=== PATIENT | female | born 1960 | race Caucasian/White ===

== ENCOUNTER 2016-10-16 11:23 | Emergency (ER) | payer OTHER ==
[~2016-10-16] VITALS: Ht 165.1 cm; Wt 70.0 kg
[~2016-10-16 11:23] MED LIST: ATOR20TA38 PO; BENA40TA41 PO; OMEP40CA6 PO; SUCR1TAB56 PO; TRAM-40 PO
[2016-10-16 11:28] VITALS: Ht 165.1 cm; Wt 70.0 kg
[2016-10-16] MEDS ORDERED: FAMOTIDINE 20 MG INJ IV STA (12:30)
[2016-10-16] MEDS ORDERED: BELLADONNA/PHENOBARBITAL TAB PO STA (12:30)
[2016-10-16] MEDS ORDERED: LIDOCAINE/MYLANTA 40 ML BTL PO STA (12:30)
[2016-10-16 13:05] LABS: BASOPHIL # 0.1 10^3/ul (0.0-0.1); BASOPHILS % 0.7 % (0.0-2.0); EOSINOPHILS # 0.1 10^3/ul (0.0-0.5); EOSINOPHILS % 1.6 % (0.0-7.0); HEMATOCRIT 36.4 % (37.0-47.0); HEMOGLOBIN 12.9 g/dl (12.0-16.0); LYMPHOCYTES # 1.9 10^3/ul (0.8-2.9); MEAN CORPUSCULAR HEMOGLOBIN 31.7 pg (29.0-33.0); MEAN CORPUSCULAR HGB CONC 35.4 g/dl (32.0-37.0); MEAN CORPUSCULAR VOLUME 89.4 fl (82.0-101.0); MONOCYTE # 0.8 10^3/ul (0.3-0.9); MONOCYTES % 11.3 % (0.0-11.0); NEUTROPHILS % 60.1 % (39.0-77.0); PLATELET COUNT 316 10^3/UL (140-415); RED BLOOD COUNT 4.07 10^6/ul (4.20-5.40); RED CELL DISTRIBUTION WIDTH 11.5 % (11.5-14.5); WHITE BLOOD COUNT 7.4 10^3/ul (4.8-10.8)
[2016-10-16 13:29] LABS: ALBUMIN 4.5 g/dl (3.3-4.9); ALBUMIN/GLOBULIN RATIO 1.21; BILIRUBIN,INDIRECT 0.3 mg/dl (0-1.1); BILIRUBIN,TOTAL 0.3 mg/dl (0.2-1.3); CALCIUM 9.8 mg/dl (8.4-10.2); CREATININE 0.82 mg/dl (0.44-1.00); POTASSIUM 4.7 mmol/L (3.5-5.1); TOTAL PROTEIN 8.2 g/dl (6.1-8.1)
--- NOTE | 2016-10-16 13:34 | ERD ---
ER Documentation Chief Complaint Date/Time DATE: 10/16/16 TIME: 13:28 Chief Complaint Complains of abdominal pain x 3 days HPI This is a very pleasant 56-year-old female history of dyspepsia, borderline hypertension who presents to the emergency room complaining of epigastric abdominal discomfort. The patient describes postprandial epigastric abdominal discomfort usually after spicy foods. This is consistent with her dyspepsia in the past. She denies any nausea vomiting, no chest pain or shortness of breath no pain to the middle of her back. Symptoms are moderate at this time. ROS All systems reviewed and are negative except as per history of present illness. Medications Home Meds Active Scripts Omeprazole* (Omeprazole*) 20 Mg Capsule., 20 MG PO BID for 30 Days Prov:TAZ WOODY MD 10/16/16 Omeprazole* (Omeprazole*) 40 Mg Capsule., 40 MG PO DAILY, #20 CAP Prov:GENOVEVA GARLAND 01/20/16 Reported Medications Calcium Carbonate/Vitamin D3 (OYSTER SHELL 500 MG + VIT D TB) 1 Each Tablet, 1 EACH PO BID, TAB 10/16/16 Meloxicam* (Meloxicam*) 7.5 Mg Tablet, 7.5 MG PO DAILY, #30 TAB 10/16/16 Oxybutynin Chloride* (Ditropan*) 5 Mg Tab, 5 MG PO TID, TAB 10/16/16 Tramadol Hcl* (Ultram*) 50 Mg Tablet, 50 MG PO BID Y for PAIN, TAB 09/19/15 Benazepril Hcl* (Benazepril Hcl*) 40 Mg Tablet, 40 MG PO DAILY, #30 TAB 09/19/15 Atorvastatin Calcium* (Atorvastatin Calcium*) 20 Mg Tablet, 20 MG PO HS, TAB 08/30/13 Discontinued Scripts Sucralfate* (Carafate*) 1 Gm Tab, 1 GM PO BID for 30 Days, TAB Take one tablet BID and one hour prior to meals by mouth Prov:GENOVEVA GARLAND 01/20/16 Allergies Allergies: Coded Allergies: No Known Allergy (Unverified , 10/16/16) PMhx/Soc History of Surgery: Yes (c section, cholecystectomy) Anesthesia Reaction: No Hx Neurological Disorder: No Hx Respiratory Disorders: No Hx Psychiatric Problems: No Hx Miscellaneous Medical Probl: No (HIGH CHOLESTEROL, ARTHRITIS) Hx Alcohol Use: No Hx Substance Use: No Hx Tobacco Use: No Smoking Status: Never smoker FmHx Family History: No diabetes Physical Exam Vitals Vital Signs Date Time Temp Pulse Resp B/P Pulse Ox O2 Delivery O2 Flow Rate FiO2 10/16/16 14:16 77 20 130/77 98 Room Air 10/16/16 11:28 98.7 68 20 123/74 97 Physical Exam General: Well developed, well nourished, no acute distress Head: Normocephalic, atraumatic Eyes: Pupils equally reactive, EOM intact ENT: Moist mucous membranes Neck: Supple, no lymphadenopathy Respiratory: Lungs clear bilaterally, no distress Cardiovascular: RRR, no murmurs, rubs, or gallops Abdominal: Soft, non-tender, non-distended, no peritoneal signs, negative Gleason sign, no tenderness to McBurney's point : Deferred MSK: No edema, no unilateral swelling, 5/5 strength Neurologic: Alert and oriented, moving all extremities, normal speech, no focal weakness, no cerebellar signs Skin: No rash Psych: Normal mood Result Diagram: 10/16/16 1250 10/16/16 1250 Results 24 hrs Laboratory Tests Test 10/16/16 12:50 White Blood Count 7.410^3/ul Red Blood Count 4.0710^6/ul Hemoglobin 12.9g/dl Hematocrit 36.4% Mean Corpuscular Volume 89.4fl Mean Corpuscular Hemoglobin 31.7pg Mean Corpuscular Hemoglobin Concent 35.4g/dl Red Cell Distribution Width 11.5% Platelet Count 57393^3/UL Mean Platelet Volume 9.0fl Neutrophils % 60.1% Lymphocytes % 26.0% Monocytes % 11.3% Eosinophils % 1.6% Basophils % 0.7% Nucleated Red Blood Cells % 0.0/100WBC Neutrophils # (Manual) 4.510^3/ul Lymphocytes # 1.910^3/ul Monocytes # 0.810^3/ul Eosinophils # 0.110^3/ul Basophils # 0.110^3/ul Nucleated Red Blood Cells # 0.010^3/ul Sodium Level 139mmol/L Potassium Level 4.7mmol/L Chloride Level 104mmol/L Carbon Dioxide Level 26mmol/L Anion Gap 14 Blood Urea Nitrogen 21mg/dl Creatinine 0.82mg/dl Glucose Level 113mg/dl Calcium Level 9.8mg/dl Total Bilirubin 0.3mg/dl Direct Bilirubin 0.00mg/dl Indirect Bilirubin 0.3mg/dl Aspartate Amino Transf (AST/SGOT) 23IU/L Alanine Aminotransferase (ALT/SGPT) 37IU/L Alkaline Phosphatase 100IU/L Total Protein 8.2g/dl Albumin 4.5g/dl Globulin 3.70g/dl Albumin/Globulin Ratio 1.21 Lipase 114U/L Current Medications Medications (Trade) Dose Ordered Sig/Chantal Route PRN Reason Start Time Stop Time Status Last Admin Dose Admin Famotidine (Pepcid Iv) 20 mg ONCE STAT IV 10/16/16 12:30 10/16/16 12:32 DC 10/16/16 13:20 Miscellaneous Medication (Gi Cocktail (2)) 40 ml ONCE STAT PO 10/16/16 12:30 10/16/16 12:32 DC 10/16/16 13:19 Belladonna/ Phenobarbital () 2 tab ONCE STAT PO 10/16/16 12:30 10/16/16 12:32 DC 10/16/16 13:19 Procedures/MDM EKG, MONITORS, & DIAGNOSTIC IMAGING: EKG: I reviewed and interpreted a 12-lead EKG. Rhythm: Normal sinus rhythm Ectopy: None Intervals: No abnormalities ST segments: No elevations or depressions T waves: No contiguous inversions Gallbladder ultrasound: Status post cholecystectomy LAB INTERPRETATION: No significant leukocytosis MEDICAL DECISION MAKING: The patient presents with postprandial epigastric abdominal discomfort. This is most consistent with likely peptic ulcer disease versus dyspepsia. The patient does not exhibit any signs or symptoms concerning for acute vascular process, cardiopulmonary process or ACS. The patient does not require CT imaging of the abdomen and pelvis. Consider possible biliary colic therefore ultrasound of the gallbladder would be reasonable. ER COURSE: GI cocktail provided.Patient with improved symptoms. Asymptomatic. Repeat abdominal exam benign. Patient safe for discharge with outpatient GI follow-up I kept the patient and/or family informed of laboratory and diagnostic imaging results throughout the emergency room course. DISPOSITION PLAN: We discussed follow up with the patient's primary care doctor within 24 to 48 hours as needed. We also discussed return to the emergency room for worsening symptoms or worsening condition. Outpatient referral: Gastroenterology Discharge Medications: Omeprazole Departure Diagnosis: Primary Impression: Acute abdominal pain Additional Impression: Dyspepsia Condition: Stable TAZ WOODY MD Oct 16, 2016 13:34
[2016-10-16] MEDS ORDERED: OXYB5TAB7 PO (13:41)
[2016-10-16] MEDS ORDERED: MELO-109 PO (13:42)
[2016-10-16] MEDS ORDERED: CALC-277 PO (13:43)
--- NOTE | 2016-10-16 13:49 | RADRPT ---
PROCEDURE: US Abdomen Limited . CLINICAL INDICATION: Abdominal pain TECHNIQUE: Multiple real-time images were acquired of the patient's right upper quadrant abdomen u tilizing a high resolution transducer. COMPARISON: None FINDINGS: The liver measures 15.1 cm and demonstrates a normal echogenicity. The gallbladder has been removed. The common bile duct measures 8.6 mm in diameter. The visualized portions of the proximal pancreas are unremarkable. The tail of the pancreas is not well visualized. Antegrade flow is seen in the portal vein. Right kidney measures 11.0 cm. Right kidney demonstrates a normal echogenicity. No hydronephrosis, masses or stones are noted. IMPRESSION: Status post cholecystectomy Tail of the pancreas not well visualized. If characterization of this structure is needed repeat exa m or CT/MRI is recommended. RPTAT: AA .Calos Sánchez MD, MD Date Time Electronically viewed and signed by .Calos Sánchez MD, MD on 10/16/2016 13:48 .P/
[2016-10-16] MEDS ORDERED: OMEP20CA16 PO (14:07)
[2016-10-16 14:16] VITALS: BP 130/77; PULSE 77; RESP 20
== END 2016-10-16 14:16 | disposition home or self-care (01) ==
LOC: E/R 11:23
DX: R10.13 Epigastric pain (principal)
CPT/HCPCS: 76705; 80053; 83690; 85025; 93005; 96374; Z7502; Z7610

== ENCOUNTER 2017-01-15 08:32 | Emergency (ER) | payer OTHER ==
[~2017-01-15] VITALS: Ht 162.6 cm; Wt 71.5 kg
[~2017-01-15 08:32] MED LIST changes: +CALC-277 PO; +MELO-216 PO; +OMEP20CA16 PO; +OXYB5TAB7 PO; -SUCR1TAB56 PO
[2017-01-15 08:36] VITALS: Ht 162.6 cm; Wt 71.5 kg
[2017-01-15] MEDS ORDERED: SOD CHLORIDE 0.9% 500 ML IV STA (08:42)
[2017-01-15] MEDS ORDERED: KETOROLAC 30 MG INJ IV STA (08:42)
--- NOTE | 2017-01-15 08:49 | ERD ---
ER Documentation Chief Complaint Chief Complaint PT with AP nausea X 4 days. Pt denies CP. HPI 56-year-old female with a history of persistent epigastric pain returns to the emergency department complaining of worsening of epigastric pain for the last 4 days associated with nausea. The pain is 4/10, burning, without radiation. The patient had blood work done last week on last month here and it was unremarkable. 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 No diarrhea or constipation, no rectal bleeding, no weight loss. Treatment attempted: Ranitidine as needed with adequate control of the symptoms. ROS SYSTEMIC symptoms: no fever, chills, no night sweats, no weight loss EYE symptoms: No blurred vision, no eye discharge OTOLARYNGEAL symptoms: No hearing loss. No ear pain, no sore throat CARDIOVASCULAR symptoms: No chest pain or discomfort, no palpitations. PULMONARY symptoms: No dyspnea, no cough, no wheezing. GASTROINTESTINAL symptoms: Per HPI MUSCULOSKELETAL symptoms: No arthralgias, no muscle aches. NEUROLOGY symptoms: No confusion, no syncope, no numbness or tingling. SKIN: No rashes Medications Home Meds Active Scripts Acetaminophen* (Tylenol*) 325 Mg Tablet, 1 TAB PO Q6 Y for PAIN AND OR ELEVATED TEMP, #20 TAB Prov:DIEUDONNE VASQUEZ MD 01/15/17 Ranitidine Hcl* (Zantac*) 150 Mg Tablet, 150 MG PO BID Y for EPIGASTRIC PAIN, # 90 TAB Prov:DIEUDONNE VASQUEZ MD 01/15/17 Omeprazole* (Omeprazole*) 20 Mg Capsule., 20 MG PO BID for 30 Days Prov:TAZ WOODY MD 10/16/16 Omeprazole* (Omeprazole*) 40 Mg Capsule., 40 MG PO DAILY, #20 CAP Prov:GENOVEVA GARLAND 01/20/16 Reported Medications Calcium Carbonate/Vitamin D3 (OYSTER SHELL 500 MG + VIT D TB) 1 Each Tablet, 1 EACH PO BID, TAB 10/16/16 Meloxicam* (Meloxicam*) 7.5 Mg Tablet, 7.5 MG PO DAILY, #30 TAB 10/16/16 Oxybutynin Chloride* (Ditropan*) 5 Mg Tab, 5 MG PO TID, TAB 10/16/16 Tramadol Hcl* (Ultram*) 50 Mg Tablet, 50 MG PO BID Y for PAIN, TAB 09/19/15 Benazepril Hcl* (Benazepril Hcl*) 40 Mg Tablet, 40 MG PO DAILY, #30 TAB 09/19/15 Atorvastatin Calcium* (Atorvastatin Calcium*) 20 Mg Tablet, 20 MG PO HS, TAB 08/30/13 Allergies Allergies: Coded Allergies: No Known Allergy (Unverified , 10/16/16) PMhx/Soc History of Surgery: Yes (c section, cholecystectomy) Anesthesia Reaction: No Hx Neurological Disorder: No Hx Respiratory Disorders: No Hx Psychiatric Problems: No Hx Miscellaneous Medical Probl: No (HIGH CHOLESTEROL, ARTHRITIS) Hx Alcohol Use: No Hx Substance Use: No Hx Tobacco Use: No Physical Exam Vitals Vital Signs Date Time Temp Pulse Resp B/P Pulse Ox O2 Delivery O2 Flow Rate FiO2 01/15/17 08:36 98.6 64 18 152/72 100 Physical Exam Patient is in no acute distress, vital signs stable. Alert and fully oriented. EYES: PERRLA, EOMI, Sclera and conjunctiva appear normal. EARS: Canals clear, tympanic membranes WNL THROAT: Normal oropharynx. NECK: Supple, No lymphadenopathy. Full ROM without pain or tenderness. HEART: RRR, no rubs, murmurs, clicks or gallops. LUNGS: Clear to auscultation. ABDOMEN: Soft, mild tenderness in epigastric area, no masses or hepatosplenomegaly. EXTREMITIES: No edema bilaterally. BACK: Full ROM, no deformity, normal back exam NEURO: Cranial nerves grossly intact, no motor or sensory deficit Result Diagram: 01/15/17 0907 01/15/17 0907 Results 24 hrs Laboratory Tests Test 01/15/17 09:07 01/15/17 09:12 White Blood Count 5.710^3/ul Red Blood Count 3.9110^6/ul Hemoglobin 12.2g/dl Hematocrit 34.9% Mean Corpuscular Volume 89.3fl Mean Corpuscular Hemoglobin 31.2pg Mean Corpuscular Hemoglobin Concent 35.0g/dl Red Cell Distribution Width 11.5% Platelet Count 59533^3/UL Mean Platelet Volume 8.8fl Neutrophils % 56.9% Lymphocytes % 28.8% Monocytes % 9.5% Eosinophils % 3.9% Basophils % 0.7% Nucleated Red Blood Cells % 0.0/100WBC Neutrophils # 3.210^3/ul Lymphocytes # 1.610^3/ul Monocytes # 0.510^3/ul Eosinophils # 0.210^3/ul Basophils # 0.010^3/ul Nucleated Red Blood Cells # 0.010^3/ul Sodium Level 143mmol/L Potassium Level 4.3mmol/L Chloride Level 109mmol/L Carbon Dioxide Level 26mmol/L Anion Gap 12 Blood Urea Nitrogen 17mg/dl Creatinine 0.73mg/dl Glucose Level 103mg/dl Calcium Level 10.1mg/dl Total Bilirubin 0.4mg/dl Direct Bilirubin 0.00mg/dl Indirect Bilirubin 0.4mg/dl Aspartate Amino Transf (AST/SGOT) 25IU/L Alanine Aminotransferase (ALT/SGPT) 45IU/L Alkaline Phosphatase 90IU/L Total Protein 7.5g/dl Albumin 4.1g/dl Globulin 3.40g/dl Albumin/Globulin Ratio 1.20 Lipase 142U/L Urine Color YELLOW Urine Clarity CLEAR Urine pH 6.0 Urine Specific [place] 1.018 Urine Ketones NEGATIVEmg/dL Urine Nitrite NEGATIVEmg/dL Urine Bilirubin NEGATIVEmg/dL Urine Urobilinogen NEGATIVEmg/dL Urine Leukocyte Esterase NEGATIVELeu/ul Urine Hemoglobin NEGATIVEmg/dL Urine Glucose NEGATIVEmg/dL Urine Total Protein NEGATIVEmg/dl Current Medications Medications (Trade) Dose Ordered Sig/Chantal Route PRN Reason Start Time Stop Time Status Last Admin Dose Admin Sodium Chloride (NS) 500 ml @ 500 mls/hr Q1H STAT IV 01/15/17 08:42 01/15/17 09:41 Cancel Ketorolac Tromethamine (Toradol) 30 mg ONCE STAT IV 01/15/17 08:42 01/15/17 08:43 Cancel Ranitidine HCl (Zantac) 300 mg ONCE ONCE PO 01/15/17 09:30 01/15/17 09:31 DC 01/15/17 09:22 Acetaminophen (Tylenol Tab) 325 mg ONCE ONCE PO 01/15/17 09:30 01/15/17 09:31 DC 01/15/17 09:23 [place] [id number] Radiology Main Line: [phone] DIAGNOSTIC IMAGING REPORT Patient: CLAIRE ARRIOLA : 1960 Age: 56 Sex: F MR #: [id number] DOS: 10/16/16 1230 Ordering MD: TAZ WOODY MD Location: E/R Room/Bed: PROCEDURE: US Abdomen Limited . CLINICAL INDICATION: Abdominal pain TECHNIQUE: Multiple real-time images were acquired of the patient's right upper quadrant abdomen utilizing a high resolution transducer. COMPARISON: None FINDINGS: The liver measures 15.1 cm and demonstrates a normal echogenicity. The gallbladder has been removed. The common bile duct measures 8.6 mm in diameter. The visualized portions of the proximal pancreas are unremarkable. The tail of the pancreas is not well visualized. Antegrade flow is seen in the portal vein. Right kidney measures 11.0 cm. Right kidney demonstrates a normal echogenicity. No hydronephrosis, masses or stones are noted. IMPRESSION: Status post cholecystectomy Tail of the pancreas not well visualized. If characterization of this structure is needed repeat exam or CT/MRI is recommended. RPTAT: AA .Calos Sánchez MD, Date Time Electronically viewed and signed by .Calos Sánchez MD, MD on 10/16/2016 13:48 .P/ CC: TAZ WOODY MD Procedures/[facility] 56y/o female patient with history of gastritis, presents to the ED c/o worsening of epigastric pain for 4 days. Vital signs stable, Physical exam revealed minimal tenderness to palpation in epigastric area. Differential diagnosis include but not limited to: UTI, colitis, gastroenteritis, kidney stones, irritable bowel syndrome, inflammatory bowel syndrome, malabsorption syndrome, cholelithiasis, food intolerance, medication side effect, pancreatitis , diverticulitis, bowel obstruction. Pertinent Data: Labs: CBC: normal, CMP: normal kidney and liver function, normal electrolytes. Lipase: normal Radiology: Ultrasound reviewed, CT abdomen 2016 reviewed. physical examination and clinical presentation consistent most likely with abdominal pain most likely secondary to gastritis without evidence of acute abdomen. During the ED course the patient remained stable, no new complaints. The patient received treatment with acetaminophen and ranitidine presenting overall improvement of the symptoms. Results and clinical impression discussed with patient who agrees with management. The patient is stable to be treated outpatient and will be discharged home with a Rx for ranitidine and Tylenol. Side effects of prescribed medications (headache, rash, nausea, vomiting, diarrhea) were reviewed. The patient was instructed to follow up with the primary care provider in the next 48h. If symptoms persist, worsen or new symptoms develop, then patient should return to the ED immediately. Instructions explained and given to patient in Faroese with acknowledgment and demonstrated understanding. Disclaimer: Inadvertent spelling and grammatical errors are likely due to EHR/ dictation software use and do not reflect on the overall quality of patient care. Also, please note that the electronic time recorded on this note does not necessarily reflect the actual time of the patient encounter. Departure Diagnosis: Primary Impression: Abdominal pain Additional Impression: Gastritis Condition: Stable DIEUDONNE VASQUEZ MD Jan 15, 2017 08:49
[2017-01-15 09:19] LABS: BASOPHILS % 0.7 % (0.0-2.0); EOSINOPHILS # 0.2 10^3/ul (0.0-0.5); EOSINOPHILS % 3.9 % (0.0-7.0); HEMATOCRIT 34.9 % (37.0-47.0); HEMOGLOBIN 12.2 g/dl (12.0-16.0); LYMPHOCYTES # 1.6 10^3/ul (0.8-2.9); LYMPHOCYTES % 28.8 % (15.0-51.0); MEAN CORPUSCULAR HEMOGLOBIN 31.2 pg (29.0-33.0); MEAN CORPUSCULAR VOLUME 89.3 fl (82.0-101.0); MEAN PLATELET VOLUME 8.8 fl (7.4-10.4); MONOCYTE # 0.5 10^3/ul (0.3-0.9); MONOCYTES % 9.5 % (0.0-11.0); NEUTROPHIL # 3.2 10^3/ul (1.6-7.5); NEUTROPHILS % 56.9 % (39.0-77.0); PLATELET COUNT 286 10^3/UL (140-415); RED BLOOD COUNT 3.91 10^6/ul (4.20-5.40); RED CELL DISTRIBUTION WIDTH 11.5 % (11.5-14.5); WHITE BLOOD COUNT 5.7 10^3/ul (4.8-10.8)
[2017-01-15] MEDS ORDERED: ACETAMINOPHEN 325 MG TAB PO ONE (09:30)
[2017-01-15] MEDS ORDERED: RANITIDINE 150 MG TAB PO ONE (09:30)
[2017-01-15 09:36] LABS: ADD UMIC NO; UR ASCORBIC ACID 40 mg/dL (NEGATIVE); UR BILIRUBIN (Dip) NEGATIVE (NEGATIVE); UR BLOOD (Dip) NEGATIVE (NEGATIVE); UR CLARITY CLEAR (CLEAR); UR COLOR YELLOW (YELLOW); UR GLUCOSE (Dip) NEGATIVE (NEGATIVE); UR KETONES (Dip) NEGATIVE (NEGATIVE); UR LEUKOCYTE ESTERASE (Dip) NEGATIVE Leu/ul (NEGATIVE); UR NITRITE (Dip) NEGATIVE (NEGATIVE); UR SPECIFIC GRAVITY (Dip) 1.018 (1.003-1.030); UR TOTAL PROTEIN (Dip) NEGATIVE (NEGATIVE); UR UROBILINOGEN (Dip) NEGATIVE (NEGATIVE)
[2017-01-15 09:39] LABS: ALBUMIN 4.1 g/dl (3.3-4.9); ALBUMIN/GLOBULIN RATIO 1.2; BILIRUBIN,INDIRECT 0.4 mg/dl (0-1.1); BILIRUBIN,TOTAL 0.4 mg/dl (0.2-1.3); CALCIUM 10.1 mg/dl (8.4-10.2); CREATININE 0.73 mg/dl (0.44-1.00); POTASSIUM 4.3 mmol/L (3.5-5.1); TOTAL PROTEIN 7.5 g/dl (6.1-8.1)
[2017-01-15] MEDS ORDERED: RANI150T9 PO (10:34)
[2017-01-15] MEDS ORDERED: ACET325T33 PO (10:34)
== END 2017-01-15 10:56 | disposition home or self-care (01) ==
LOC: FTE 08:32
DX: K29.70 Gastritis, unspecified, without bleeding (principal)
CPT/HCPCS: 36415; 80053; 81003; 83690; 85025; Z7502; Z7610; 99283; J1885; J7040

== ENCOUNTER 2017-04-07 09:11 | Day surgery (SDC) | END 2017-04-07 11:21 | disposition home or self-care (01) ==

== ENCOUNTER 2017-07-22 13:44 | Emergency (ER) | END 2017-07-22 17:49 | disposition home or self-care (01) ==

== ENCOUNTER 2017-07-30 21:52 | Emergency (ER) | END 2017-07-31 02:07 | disposition home or self-care (01) ==

== ENCOUNTER 2017-11-19 09:36 | Emergency (ER) | END 2017-11-19 11:15 | disposition home or self-care (01) ==